=== PATIENT | female | born 1985 | race Caucasian/White ===

== ENCOUNTER 2017-01-21 05:20 | Inpatient (IN) | payer BC ==
[~2017-01-21] VITALS: Ht 165.1 cm; Wt 87.5 kg
[2017-01-21] MEDS ORDERED: MORPHINE SULFATE 10 MG/ML VIAL ONE (06:22)
[2017-01-21] MEDS ORDERED: LR 1,000 ML IV SCH ×3 (06:40→17:01)
[2017-01-21] MEDS ORDERED: TERBUTALINE SULFATE 1 MG/ML VIAL SUBCUT ONE (06:45)
[2017-01-21] MEDS ORDERED: MORPHINE 4 MG/ML INJ. SYRINGE IVP ONE (06:45)
[2017-01-21] MEDS ORDERED: MORPHINE SULFATE 10 MG/ML VIAL IVP ONE (07:00)
[2017-01-21 07:10] LABS: BASOPHILS # (AUTO) 0.1 K/uL (0.0-0.2); BASOPHILS % (AUTO) 0.7 % (0.0-2.0); EOSINOPHILS % (AUTO) 0.2 % (0.0-4.0); HEMATOCRIT 35.7 % (36-48); HEMOGLOBIN 12.5 g/dL (12.0-16.0); LYMPHOCYTES # (AUTO) 2.8 K/uL (1.0-5.5); LYMPHOCYTES % (AUTO) 17.7 % (20.5-51.5); MEAN CORPUSCULAR HEMOGLOBIN 30 pg (27-31); MEAN CORPUSCULAR HGB CONC 35 % (32-36); MEAN CORPUSCULAR VOLUME 85 fL (79.0-98.0); MONOCYTES # (AUTO) 0.7 K/uL (0.0-1.0); MONOCYTES % (AUTO) 4.2 % (1.7-9.3); NEUTROPHILS # (AUTO) 12.2 K/uL (1.8-7.7); NEUTROPHILS % (AUTO) 77.2 % (40.0-70.0); PLATELET COUNT (AUTO) 201 K/uL (130-430); RED BLOOD CELL COUNT(AUTO) 4.19 MIL/uL (4.2-6.2); RED CELL DISTRIBUTION WIDTH 12.5 % (9.0-15.0); WHITE BLOOD COUNT (AUTO) 15.8 K/uL (4.8-10.8)
[2017-01-21 07:20] LABS: CALCIUM 8.4 mg/dL (8.4-11.0); CREATININE 0.76 mg/dL (0.55-1.30)
[2017-01-21 07:24] LABS: ALBUMIN 2.4 g/dL (3.4-4.8); TOTAL BILIRUBIN 0.2 mg/dL (0.0-1.0); TOTAL PROTEIN, SERUM 6.1 g/dL (6.4-8.3)
[2017-01-21 07:28] LABS: POTASSIUM 2.9 mmol/L (3.5-5.1)
[2017-01-21] MEDS ORDERED: FENT2mCg/mL-ROPIVA0.2%/NS EPID 0 ML EP ONE (08:06)
[2017-01-21] MEDS ORDERED: fentaNYL CITRATE/PF 100 MCG/2 ML AMP ONE (08:39)
[2017-01-21] MEDS ORDERED: FENT2mCg/mL-ROPIVA0.2%/NS EPID 150 ML EP ONE (08:39)
[2017-01-21] MEDS ORDERED: LR 500 ML IV ONE (08:50)
[2017-01-21] MEDS ORDERED: fentaNYL CITRATE/PF 100 MCG/2 ML AMP EP ONE (09:00)
[2017-01-21] MEDS ORDERED: FENT2mCg/mL-ROPIVA0.2%/NS EPID 150 ML EP SCH (09:00)
[2017-01-21] MEDS ORDERED: ePHEDrine sulfate 50 MG/ML VIAL IVP PRN ×2 (09:00→15:15)
[2017-01-21] MEDS ORDERED: OXYTOCIN/NORMAL SALINE 1,000 ML IV ONE ×3 (10:08→17:11)
[2017-01-21] MEDS ORDERED: AMPICILLIN SODIUM 2 GM VIAL ONE (12:35)
[2017-01-21 13:42] VITALS: BP_SYST 126
[2017-01-21] MEDS ORDERED: MIDAZOLAM HCL 5 MG/5 ML VIAL ONE (14:00)
[2017-01-21] MEDS ORDERED: LR 1,000 ML IV.SOLN IV ONE (14:00)
[2017-01-21] MEDS ORDERED: OXYTOCIN 10 UNIT/ML VIAL ONE (14:00)
[2017-01-21] MEDS ORDERED: MORPHINE SULFATE 10MG/10ML PF AMP ONE (14:00)
[2017-01-21] MEDS ORDERED: NS IRRIG SOLN 1000 ML IR ONE (14:00)
[2017-01-21] MEDS ORDERED: LIDOCAINE PF 2%, 200 MG/10 ML AMPUL.LUER (EPIDURAL) INJ ONE (14:00)
[2017-01-21] MEDS ORDERED: CITRIC ACID/SODIUM CITRATE 30 ML UDC ONE (14:31)
[2017-01-21] MEDS ORDERED: CEFAZOLIN 2 GM IVPB PREMIX 50 ML IV ONE ×2 (14:32→14:45)
[2017-01-21] MEDS ORDERED: CITRIC ACID/SODIUM CITRATE 30 ML UDC PO ONE (14:45)
[2017-01-21] MEDS ORDERED: AMPICILLIN SODIUM 2 GM in NS 100 ML IV ONE (14:45)
[2017-01-21 15:13] LABS: BILIRUBIN,URINE NEGATIVE (NEGATIVE); CLARITY/URINE CLEAR (CLEAR); COLOR,URINE YELLOW (YELLOW); GLUCOSE,URINE NEGATIVE (NEGATIVE); KETONES,URINE 1+ (NEGATIVE); LEUKOCYTE ESTERASE ,URINE NEGATIVE (NEGATIVE); NITRITE, URINE NEGATIVE (NEGATIVE); PROTEIN URINE 1+ (NEGATIVE); UROBILINOGEN,URINE 0.2 (0.2-1.0)
[2017-01-21] MEDS ORDERED: MEPERIDINE HCL/PF 25 MG/ML DISP.SYRIN IVP PRN ×2 (15:15)
[2017-01-21] MEDS ORDERED: DIPHENHYDRAMINE INJ 50 MG/ML VIAL IVP PRN (15:15)
[2017-01-21] MEDS ORDERED: NALBUPHINE HCL 10 MG/ML AMP IVP PRN (15:15)
[2017-01-21] MEDS ORDERED: HYDROmorphone 2 MG/ML VIAL IVP PRN ×2 (15:15)
[2017-01-21] MEDS ORDERED: HYDROmorphone 1 MG INJ. 1 MG/ML AMPUL IVP PRN ×2 (15:15)
[2017-01-21] MEDS ORDERED: KETOROLAC TROMETHAMINE 30 MG VIAL IVP PRN ×2 (15:15)
[2017-01-21] MEDS ORDERED: ONDANSETRON HCL 4 MG/2 ML VIAL IVP PRN ×2 (15:15)
[2017-01-21] MEDS ORDERED: MORPHINE SULFATE 10MG/10ML PF AMP EP SCH (15:15)
[2017-01-21] MEDS ORDERED: NALOXONE HCL 0.4 MG/ML AMP (NARCAN) IVP PRN (15:15)
[2017-01-21 15:16] LABS: BARBITURATE, URINE NEGATIVE (NEG <=200); BENZODIAZEPINE, URINE NEGATIVE (NEG <=150); CANNABINOID, URINE NEGATIVE (NEG <=50); COCAINE, URINE NEGATIVE (NEG <=150); METHAMPHETAMINES SCREEN,URINE NEGATIVE (NEG <=500); OPIATE, URINE POSITIVE (NEG <=100); PHENCYCLIDINE SCREEN,URINE NEGATIVE (NEG <=25); UR TRICYCLIC ANTIDEPRESSANTS NEGATIVE (NEG <=300); URINE AMPHETAMINE NEGATIVE (NEG <=500); URINE METHADONE NEGATIVE (NEG <=200); URINE OXYCODONE SCREEN NEGATIVE (NEG <=100); URINE PROPOXYPHENE SCREEN NEGATIVE (NEG <=300)
[2017-01-21 15:27] LABS: BLOOD, URINE TRACE (NEGATIVE)
[2017-01-21 15:33] LABS: BACTERIA,URINE FEW /HPF (None Seen); MUCUS,URINE 1+ /LPF (None Seen); RBC,URINE 0-3 /HPF (0-3); WBC,URINE 0-3 /HPF (0-3)
[2017-01-21 17:14] VITALS: BP_SYST 159
[2017-01-21] MEDS ORDERED: BISACODYL 10 MG/SUPPOSITORY RC PRN (17:15)
[2017-01-21] MEDS ORDERED: KCL 40 mEq in 100 mL (PREMIX) 100 ML IV ONE (17:15)
[2017-01-21] MEDS ORDERED: RHO(D) IMMUNE GLOBULIN/MALTOSE 1500 UNITS/1.3 ML (WINHRO) IM PRN (17:15)
[2017-01-21] MEDS ORDERED: ANUSOL 1 EA SUPP.RECT (PREPARATION H) RC PRN (17:15)
[2017-01-21] MEDS ORDERED: LANOLIN 7 GM OINT. TP PRN (17:15)
[2017-01-21] MEDS ORDERED: OXYCODONE/ACETAMINOPHEN 5-325 TABLET PO PRN (17:15)
[2017-01-21] MEDS ORDERED: ACETAMINOPHEN 325 MG TABLET PO PRN (17:15)
[2017-01-21] MEDS ORDERED: MEASLES,MUMPS&RUBELLA VACC/PF 12500 UNIT/0.5 ML VIAL SUBQ PRN (17:15)
[2017-01-21] MEDS ORDERED: SENNOSIDES/DOCUSATE SODIUM 1 TAB TABLET(SENOKOT-S) PO PRN (17:15)
[2017-01-21] MEDS ORDERED: POTASSIUM CHLORIDE 40 MEQ in NS 250 ML IV ONE (17:30)
[2017-01-21] MEDS ORDERED: TERBUTALINE SULFATE 1 MG/ML VIAL ONE (19:00)
[2017-01-21] MEDS ORDERED: ROPIVACAINE 40 MG/20 ML AMP EP ONE (19:00)
[2017-01-21] MEDS ORDERED: TEMAZEPAM 15 MG CAPSULE PO PRN (21:00)
[2017-01-21 21:43] LABS: HEMATOCRIT 28.6 % (36-48); HEMOGLOBIN 9.8 g/dL (12.0-16.0); MEAN CORPUSCULAR HEMOGLOBIN 29 pg (27-31); MEAN CORPUSCULAR HGB CONC 34 % (32-36); MEAN CORPUSCULAR VOLUME 84 fL (79.0-98.0); PLATELET COUNT (AUTO) 213 K/uL (130-430); RED BLOOD CELL COUNT(AUTO) 3.42 MIL/uL (4.2-6.2); RED CELL DISTRIBUTION WIDTH 12.6 % (9.0-15.0); WHITE BLOOD COUNT (AUTO) 24.7 K/uL (4.8-10.8)
[2017-01-21 22:09] LABS: FREE T4 (FREE THYROXINE) 0.8 ng/dL (0.6-1.6); THYROID STIMULATING HORMONE 0.63 uIu/mL (0.34-4.82)
[2017-01-21 22:30] LABS: BAND % (MANUAL) 29 % (0-6); LYMPHOCYTES % (MANUAL) 7 % (20-46); MONOCYTES % (MANUAL) 6 % (0-11)
[2017-01-21 22:31] LABS: BASOPHILS % (MANUAL) 0 % (0-2); EOSINOPHILS % (MANUAL) 0 % (0-7)
[2017-01-22 00:46] LABS: BASOPHILS # (AUTO) 0.1 K/uL (0.0-0.2); BASOPHILS % (AUTO) 0.5 % (0.0-2.0); HEMATOCRIT 26.3 % (36-48); HEMOGLOBIN 8.8 g/dL (12.0-16.0); LYMPHOCYTES # (AUTO) 2.4 K/uL (1.0-5.5); LYMPHOCYTES % (AUTO) 13.2 % (20.5-51.5); MEAN CORPUSCULAR HEMOGLOBIN 28 pg (27-31); MEAN CORPUSCULAR HGB CONC 34 % (32-36); MEAN CORPUSCULAR VOLUME 84 fL (79.0-98.0); MONOCYTES # (AUTO) 1.2 K/uL (0.0-1.0); MONOCYTES % (AUTO) 6.8 % (1.7-9.3); NEUTROPHILS # (AUTO) 14.3 K/uL (1.8-7.7); NEUTROPHILS % (AUTO) 79.5 % (40.0-70.0); PLATELET COUNT (AUTO) 179 K/uL (130-430); RED BLOOD CELL COUNT(AUTO) 3.13 MIL/uL (4.2-6.2); RED CELL DISTRIBUTION WIDTH 12.8 % (9.0-15.0)
[2017-01-22 07:52] LABS: BASOPHILS # (AUTO) 0.1 K/uL (0.0-0.2); BASOPHILS % (AUTO) 0.4 % (0.0-2.0); HEMATOCRIT 27.6 % (36-48); HEMOGLOBIN 9.6 g/dL (12.0-16.0); LYMPHOCYTES # (AUTO) 1.4 K/uL (1.0-5.5); LYMPHOCYTES % (AUTO) 8.1 % (20.5-51.5); MEAN CORPUSCULAR HEMOGLOBIN 29 pg (27-31); MEAN CORPUSCULAR HGB CONC 35 % (32-36); MEAN CORPUSCULAR VOLUME 84 fL (79.0-98.0); MONOCYTES # (AUTO) 0.7 K/uL (0.0-1.0); MONOCYTES % (AUTO) 4.3 % (1.7-9.3); NEUTROPHILS # (AUTO) 14.6 K/uL (1.8-7.7); NEUTROPHILS % (AUTO) 87.2 % (40.0-70.0); PLATELET COUNT (AUTO) 193 K/uL (130-430); RED BLOOD CELL COUNT(AUTO) 3.29 MIL/uL (4.2-6.2); RED CELL DISTRIBUTION WIDTH 12.5 % (9.0-15.0); WHITE BLOOD COUNT (AUTO) 16.8 K/uL (4.8-10.8)
[2017-01-22] MEDS: SIMETHICONE 80 MG TAB.CHEW PO PRN ×2 (11:32→22:09)
[2017-01-22] MEDS: DOCUSATE SODIUM 100 MG CAPSULE PO PRN ×2 (11:32→22:09)
[2017-01-22] MEDS: OXYCODONE/ACETAMINOPHEN 5-325 TABLET PO PRN ×2 (11:33→23:41)
[2017-01-22] MEDS: IBUPROFEN 600 MG TABLET PO SCH ×3 (11:33→23:40)
[2017-01-23] MEDS: IBUPROFEN 600 MG TABLET PO SCH ×4 (05:40→17:47)
[2017-01-23] MEDS: OXYCODONE/ACETAMINOPHEN 5-325 TABLET PO PRN ×3 (05:45→15:56)
[2017-01-23] MEDS: DOCUSATE SODIUM 100 MG CAPSULE PO PRN (10:34)
[2017-01-23] MEDS: SIMETHICONE 80 MG TAB.CHEW PO PRN (10:35)
[2017-01-24] MEDS: IBUPROFEN 600 MG TABLET PO SCH ×2 (06:07→11:01)
[2017-01-24] MEDS: DOCUSATE SODIUM 100 MG CAPSULE PO PRN (11:02)
[2017-01-24] MEDS: OXYCODONE/ACETAMINOPHEN 5-325 TABLET PO PRN (11:02)
[2017-01-24] MEDS: SIMETHICONE 80 MG TAB.CHEW PO PRN (11:03)
== END 2017-01-24 11:15 | disposition home or self-care (01) | DRG 765 ==
LOC: SPU 05:20 → OBSVTOIN 08:11 → SPU 17:35
PROVIDERS: ADMIT Obstetrics & Gynecology; ATTEND Obstetrics & Gynecology
PROC: 10D00Z1 Extraction of Products of Conception, Low, Open Approach (ICD-10-PCS; principal; 2017-01-21 13:15)
DX: O60.14X0 Preterm labor third trimester with preterm delivery third trimester, not applicable or unspecified (principal); O72.1 Other immediate postpartum hemorrhage; O98.52 Other viral diseases complicating childbirth; O42.913 Preterm premature rupture of membranes, unspecified as to length of time between rupture and onset of labor, third trimester; B00.9 Herpesviral infection, unspecified; O99.284 Endocrine, nutritional and metabolic diseases complicating childbirth; O76 Abnormality in fetal heart rate and rhythm complicating labor and delivery; E87.6 Hypokalemia; O33.9 Maternal care for disproportion, unspecified; Z37.0 Single live birth; Z3A.36 36 weeks gestation of pregnancy; Z23 Encounter for immunization
CPT/HCPCS: 36415; 59899; 80053; 80307; 81000-TC; 84132-TC; 84439; 84443-TC; 85007; 85025; 85027; 86592; 86886; 86900; 86901; 94760; G0378; J0290; J0690; J1170; J1885; J2001; J2250; J2270; J2274; J2590; J2795; J3010; J3105; J3480; J7050; J7120